=== PATIENT | female | born 1935 | race Caucasian/White ===

== ENCOUNTER → 2017-11-08 | Outpatient (CLI) | payer BC ==
[~2017-11-08] MED LIST: CARTIA XT120 M1 PO; CLOBETASOL PROP50 M1 TOP; ELIQUIS5 MG PO; FLONASE 0.05%50 MCG NASAL; GARLIPURE600 MG PO; KRILL OIL 1,001 EAC1 PO; LISINOPRIL-HCT1 EACH PO; PROTONIX40 M1 PO; VITAMIN A10000 UNI3; VITAMIN B-12500 MCG PO; VITAMIN D3400 UNIT PO; VITAMIN E400 UNIT PO; VITAMINC500 PO; ZOCOR20 MG
== END ==
LOC: M.RAD 12:37
DX: Z12.31 Encounter for screening mammogram for malignant neoplasm of breast (principal)

== ENCOUNTER 2018-08-03 17:15 | Emergency (ER) | payer BC ==
[~2018-08-03] VITALS: Ht 157.5 cm; Wt 72.6 kg
[2018-08-03] MEDS ORDERED: PROTONIX40 M1 PO (17:26)
[2018-08-03] MEDS ORDERED: LISINOPRIL-HCT1 EACH PO (17:26)
[2018-08-03] MEDS ORDERED: ZOCOR20 MG (17:27)
[2018-08-03] MEDS ORDERED: ELIQUIS5 MG PO (17:27)
[2018-08-03] MEDS ORDERED: CARTIA XT120 M1 PO (17:28)
[2018-08-03] MEDS ORDERED: FLONASE 0.05%50 MCG NASAL (17:28)
[2018-08-03] MEDS ORDERED: VITAMIN B-12500 MCG PO (17:29)
[2018-08-03] MEDS ORDERED: VITAMIN E400 UNIT PO (17:29)
[2018-08-03] MEDS ORDERED: CLOBETASOL PROP50 M1 TOP (17:29)
[2018-08-03] MEDS ORDERED: VITAMINC500 PO (17:29)
[2018-08-03] MEDS ORDERED: VITAMIN D3400 UNIT PO (17:29)
[2018-08-03] MEDS ORDERED: VITAMIN A10000 UNI3 (17:30)
[2018-08-03] MEDS ORDERED: KRILL OIL 1,001 EAC1 PO (17:30)
[2018-08-03] MEDS ORDERED: GARLIPURE600 MG PO (17:31)
[2018-08-03 17:59] VITALS: BP 143/91
== END 2018-08-03 18:00 | disposition home or self-care (01) ==
LOC: M.ERS 17:15
DX: L76.22 Postprocedural hemorrhage of skin and subcutaneous tissue following other procedure (principal); I48.91 Unspecified atrial fibrillation; I10 Essential (primary) hypertension; K21.9 Gastro-esophageal reflux disease without esophagitis; Z90.49 Acquired absence of other specified parts of digestive tract

== ENCOUNTER → 2018-11-06 | Outpatient (CLI) | payer BC | LOC: M.RAD 11:17 | DX: Z12.31 Encounter for screening mammogram for malignant neoplasm of breast (principal) ==

== ENCOUNTER 2018-11-27 12:16 | Inpatient (IN) | payer BC ==
[~2018-11-27] VITALS: Ht 157.5 cm; Wt 74.4 kg
[~2018-11-27 12:16] MED LIST changes: -ZOCOR20 MG; +ZOCOR20 MG PO
[2018-11-27 12:17] VITALS: BP 166/92
[2018-11-27 13:05] LABS: URINE BILIRUBIN NEGATIVE (Negative); URINE BLOOD TRACE (Negative); URINE CLARITY CLEAR; URINE COLOR YELLOW; URINE GLUCOSE-RANDOM NEGATIVE (Negative); URINE KETONES NEGATIVE (Negative); URINE LEUKOCYTES-REFLEX NEGATIVE (Negative); URINE NITRITE-REFLEX NEGATIVE (Negative); URINE PROTEIN NEGATIVE (Negative); URINE SPECIFIC GRAVITY 1.015 (1.005-1.030); URINE UROBILINOGEN 0.2 E.U./dl (0.2-1.0)
[2018-11-27 13:06] LABS: ABSOLUTE BASOPHILS 0.1 thou/uL (0.0-0.2); ABSOLUTE LYMPHOCYTES 1.1 thou/uL (0.8-5.3); ABSOLUTE MONOCYTES 0.4 thou/uL (0.0-1.2); ABSOLUTE NEUTROPHILS 4.9 thou/uL (1.6-8.1); BASOPHILS 1.3 %; EOSINOPHILS 0.4 %; HEMATOCRIT 33.9 % (37.0-47.0); HEMOGLOBIN 11.1 gm/dL (12.0-15.0); LYMPHOCYTES 16.4 %; MCH 27.5 pg (26.0-34.0); MCHC 32.7 g/dL (28.0-37.0); MCV 84.3 fL (80.0-100.0); MONOCYTES 6.5 %; MPV 9.4 fl. (7.2-11.1); NUCLEATED RBCS 0 /100WBC; PLATELET COUNT* 310 thou/uL (150-400); POLYS 75.4 %; RBC 4.03 mil/uL (4.20-5.00); RDW-CV 16.4 % (10.5-14.5); WBC 6.5 thou/uL (4.0-11.0)
[2018-11-27 13:16] LABS: APTT 26.8 Seconds (25.0-31.3); CALCIUM 9.2 mg/dL (8.5-10.1); CREATININE 1.3 mg/dL (0.6-1.3); INR 1.1; POTASSIUM 3.1 mmol/L (3.5-5.1); PROTIME 11.6 Seconds (9.20-11.50)
[2018-11-27 13:20] LABS: ALBUMIN 3.9 g/dL (3.4-5.0); TOTAL BILIRUBIN 0.3 mg/dL (<0.1-1.0); TOTAL PROTEIN 7.5 g/dL (6.4-8.2)
[2018-11-27 15:22] VITALS: BP 136/71
--- NOTE | 2018-11-27 15:38 | EKG ---
[place] [address] ELECTROCARDIOGRAM REPORT Name: TRAVIS AMBRIZ Room: [place] [address] ADM IN [facility]#: [id number] Admission: 11/27/18 Attend Phys: Rad Shelton Discharge: Date of : 37 Report #: [id number] THIS REPORT FOR: //name// [facility] ED Test Date: 2018-11-27 Test Time: 12:44:21 Pat Name: TRAVIS AMBRIZ Department: Room: [facility] Gender: F Technical Support Intern: tdtimmy : 1935 Requested By: Latisha Torres Order Number: [id number] MD: Dio Jaramillo Measurements Intervals [place] Rate: 73 P: [place]: QRS: 87 QRSD: 99 T: 27 QT: 411 QTc: 453 Interpretive Statements Atrial fibrillation Borderline right axis deviation Baseline wander in lead(s) III,aVF No previous ECG available for comparison Electronically Signed On 11-27-2018 15:38:22 MARKET PRESIDENT by Dio Jaramillo [email or web address] <ELECTRONICALLY SIGNED> By: Dio Jaramillo MD, [facility] 11/27/18 1538 1244 1244 Dio Jaramillo MD, FAC /EPI
[2018-11-27 17:33] VITALS: BP 147/59
[2018-11-27 20:30] VITALS: BP 125/71
[2018-11-28 04:11] LABS: HEMATOCRIT 28.6 % (37.0-47.0); HEMOGLOBIN 9.3 gm/dL (12.0-15.0); MCH 27.8 pg (26.0-34.0); MCHC 32.6 g/dL (28.0-37.0); MCV 85.2 fL (80.0-100.0); MPV 9.4 fl. (7.2-11.1); RBC 3.36 mil/uL (4.20-5.00); WBC 9.7 thou/uL (4.0-11.0)
[2018-11-28 04:29] LABS: ALBUMIN 3.1 g/dL (3.4-5.0); CALCIUM 8.2 mg/dL (8.5-10.1); CREATININE 1.1 mg/dL (0.6-1.3); POTASSIUM 3.7 mmol/L (3.5-5.1); TOTAL BILIRUBIN 0.5 mg/dL (<0.1-1.0); TOTAL PROTEIN 6.3 g/dL (6.4-8.2)
[2018-11-28 07:30] VITALS: BP 133/68
[2018-11-28 11:52] VITALS: BP 117/67; BP 123/64; BP 124/66; BP 130/70
[2018-11-28 12:55] VITALS: BP 133/68
[2018-11-28 18:38] LABS: HEMATOCRIT 35.2 % (37.0-47.0); HEMOGLOBIN 10.9 gm/dL (12.0-15.0)
[2018-11-28 19:30] VITALS: BP 131/78
[2018-11-29] VITALS: BP 138/68
[2018-11-29 03:39] LABS: HEMATOCRIT 28.9 % (37.0-47.0); HEMOGLOBIN 9.4 gm/dL (12.0-15.0)
[2018-11-29 04:00] VITALS: BP 124/63
[2018-11-29 09:00] VITALS: BP 122/63
[2018-11-29 16:03] VITALS: BP 139/77
[2018-11-29 20:45] VITALS: BP 99/43
[2018-11-30] VITALS: BP 93/50
[2018-11-30 04:00] VITALS: BP 95/50
[2018-11-30 05:32] LABS: HEMOGLOBIN 7.5 gm/dL (12.0-15.0); MCH 28.1 pg (26.0-34.0); MCHC 32.8 g/dL (28.0-37.0); MCV 85.9 fL (80.0-100.0); MPV 9.5 fl. (7.2-11.1); RBC 2.68 mil/uL (4.20-5.00); WBC 7.7 thou/uL (4.0-11.0)
[2018-11-30 09:06] VITALS: BP 121/45
[2018-11-30 12:58] VITALS: BP 101/52
[2018-11-30 17:16] VITALS: BP 122/70
[2018-11-30 19:15] VITALS: BP 125/57
[2018-12-01 08:30] VITALS: BP 129/61; BP 138/62
[2018-12-01 17:09] VITALS: BP 125/59
[2018-12-01 20:30] VITALS: BP 122/71
[2018-12-02 04:31] VITALS: BP 110/68
[2018-12-02 05:54] LABS: HEMATOCRIT 20.7 % (37.0-47.0)
[2018-12-02 06:01] LABS: HEMOGLOBIN 6.7 gm/dL (12.0-15.0)
--- NOTE | 2018-12-02 07:17 | OP ---
[address] [address] OPERATIVE REPORT Name: TRAVIS AMBRIZ Room: [address] IN ..#: [id number] Admission: 11/27/18 Attend Phys: Rad Shelton Discharge: Date of : 37 Report #: [id number] THIS REPORT FOR: //name// CC: Meredith Zeng DICTATED BY: Ari Hyde DO DATE OF SERVICE: 11/28/2018 PREOPERATIVE DIAGNOSIS: Right reverse obliquity intertrochanteric femur fracture. POSTOPERATIVE DIAGNOSIS: Right reverse obliquity intertrochanteric femur fracture. SURGEON: Dao Flood DO ASSISTANTS: 1. Raoul Bland DO 2. Ari Hyde DO OPERATION PERFORMED: Right hip open reduction and internal fixation with cephalomedullary nail. ANESTHESIA: General. ESTIMATED BLOOD LOSS: 600 mL. SPECIMENS: None. DRAINS: None. COMPLICATIONS: None. CONDITION: The patient is stable to PACU. ORTHOPEDIC IMPLANTS: 1. Emely 340 mm gamma nail. 2. Emely 90 mm compression screw. 3. Emely 42.5 mm and 47.5 mm distal interlocking screws. INDICATIONS FOR PROCEDURE: The patient is a pleasant 83-year-old female who had a fall and ultimately breaking her right hip. She was brought to the Emergency Department where she was found to have an intertrochanteric femur fracture. She was admitted to the med/surg floor and medically optimized while her blood [facility] [address] [place] [address] OPERATIVE REPORT Name: TRAVIS AMBRIZ Room: [address] IN .R.#: [id number] Admission: 11/27/18 Attend Phys: Rad Shelton Discharge: Date of : 37 Report #: [id number] thinner was held for greater than 24 hours. She was then made n.p.o. and consented for open reduction and internal fixation of her right femur. All risks, benefits, complications, indications, alternatives reviewed and the patient wished to proceed. PROCEDURE DESCRIPTION: The patient brought to the operative suite and placed on the [place] table after given the benefits of general anesthesia. Once appropriate position on the [place] table, a Leadbetter closed reduction maneuver was attempted multiple times, eventually getting this to near anatomic reduction; however, there still was some step-off anteriorly as the reverse obliquity fracture pattern made the proximal fragment tough to control. Ultimately, we were fairly pleased at this point and went ahead and prepped the hip. Once the hip was sterilely prepped, a timeout was taken to ensure the correct patient, procedure, operative site and everybody in the room agreed and confirmed. Antibiotics had been given. We then proceeded to make a skin incision from just distal to the greater trochanter to proximal. This was done through skin and subcutaneous tissue and then the tensor fascia was split. This allowed us access to the greater trochanter. A Harris elevator was used to mobilize the proximal fragment and ultimately bring it out of external rotation. Once this was done, we had anatomic reduction on fluoroscopy both AP and lateral views. We then positioned our guide pin in the appropriate position just medial to the tip of the greater trochanter. This was advanced down to the level of lesser trochanter. A 15.5 mm entry reamer was then taken down over the guidewire to the lesser trochanter. Ball-tipped guidewire was then passed to the superior pole of the patella, was measured to be 345 mm. We elected to use a 340 mm nail. We then sequentially reamed starting with an 11 mm reamer up to a 13. We then passed our 11 x 340 mm [place] right-sided gamma nail. This was malleted into the appropriate depth. We then used our triple sleeve to place our guide pin in the appropriate position, low in the neck and center-center on the lateral. This was taken to subchondral bone and measured. We elected to ream to a 90 mm depth where we placed our 90 mm lag screw. This was done. We obtained orthogonal imaging through this portion of the case. At this point, the set screw was engaged and locked our compression screw within the gamma nail at the desired position. We then took final AP and lateral images proximally after removing the targeting arm. We then brought our attention distally and used a perfect nondalton technique to place 2 distal interlocking screws. Knife was used to make skin incision through skin and IT band and then the drill was used with the aid of fluoroscopy to drill both the static interlocking screw as well as the static position of the oblong slot on the nail. These were drilled and measured to be 42.5 and 47.5 mm respectively and titanium interlocking screws were placed. At this point, final AP and lateral images were taken confirming we were indeed within the nail. These were saved to the PACS system. We then irrigated the wounds with normal saline. We closed the deep tensor fascia and IT band with a #1 Vicryl as well as a #1 Stratafix. We used a #1 Stratafix to approximate the subcutaneous layer. Try and prevent any hematoma formation, we then closed with a 2-0 Vicryl followed by jose d on the skin. Mepilex dressing, 4 x 4s, ABD and [address] [address] OPERATIVE REPORT Name: TRAVIS AMBRIZ Room: [address] IN .R.#: [id number] Admission: 11/27/18 Attend Phys: Rad Shelton Discharge: Date of : 37 Report #: [id number] Medipore tape were applied. The patient awoken from anesthesia and brought to the PACU in a stable condition. <ELECTRONICALLY SIGNED> By: Shaheen Miller DO 12/02/18 0717 1818 1920Dao Flood DO /nt
[2018-12-02 08:00] VITALS: BP 114/61
[2018-12-02 09:30] VITALS: BP 124/54; BP 127/68; BP 128/58; BP 129/96; BP 140/72
[2018-12-02 15:52] LABS: HEMOGLOBIN 9.3 gm/dL (12.0-15.0)
[2018-12-02 20:00] VITALS: BP 130/67
[2018-12-03 08:38] VITALS: BP 140/69
[2018-12-03 16:00] VITALS: BP 123/69
[2018-12-03 20:00] VITALS: BP 147/85
[2018-12-04 09:50] LABS: HEMATOCRIT 31.5 % (37.0-47.0); HEMOGLOBIN 10.2 gm/dL (12.0-15.0)
[2018-12-04 12:00] VITALS: BP 121/52
[2018-12-04 13:21] LABS: MCH 28.2 pg (26.0-34.0); MCHC 31.9 g/dL (28.0-37.0); MCV 88.6 fL (80.0-100.0); MPV 9.9 fl. (7.2-11.1); RBC 3.6 mil/uL (4.20-5.00); WBC 17.2 thou/uL (4.0-11.0)
[2018-12-04 13:27] LABS: CALCIUM 9.3 mg/dL (8.5-10.1); CREATININE 1.6 mg/dL (0.6-1.3); POTASSIUM 3.9 mmol/L (3.5-5.1); TOTAL BILIRUBIN 1.9 mg/dL (<0.1-1.0); TOTAL PROTEIN 5.4 g/dL (6.4-8.2)
[2018-12-04 15:49] VITALS: BP 151/82
[2018-12-04 20:00] VITALS: BP 99/61
[2018-12-05 04:04] LABS: HEMATOCRIT 24.5 % (37.0-47.0); MCH 27.8 pg (26.0-34.0); MCHC 31.8 g/dL (28.0-37.0); MCV 87.2 fL (80.0-100.0); NUCLEATED RBCS 0 /100WBC; PLATELET COUNT* 363 thou/uL (150-400); RBC 2.82 mil/uL (4.20-5.00); RDW-CV 16.8 % (10.5-14.5); WBC 14.4 thou/uL (4.0-11.0)
[2018-12-05 04:20] LABS: HEMOGLOBIN 7.8 gm/dL (12.0-15.0)
[2018-12-05 04:32] LABS: ALBUMIN 1.9 g/dL (3.4-5.0); CALCIUM 8.5 mg/dL (8.5-10.1); CREATININE 1.5 mg/dL (0.6-1.3); POTASSIUM 4.4 mmol/L (3.5-5.1); TOTAL BILIRUBIN 0.6 mg/dL (<0.1-1.0); TOTAL PROTEIN 5.4 g/dL (6.4-8.2)
[2018-12-05 06:19] LABS: ABSOLUTE LYMPHOCYTES 1.2 thou/uL (0.8-5.3); ABSOLUTE MONOCYTES 0.9 thou/uL (0.0-1.2); ABSOLUTE NEUTROPHILS 12.4 thou/uL (1.6-8.1); HYPOCHROMASIA 2+; PLATELET ESTIMATE ADEQUATE; POLYCHROMASIA 1+
[2018-12-05 06:20] LABS: MICROCYTES 1+; OVALOCYTES 1+
[2018-12-05 08:15] VITALS: BP 98/31
[2018-12-05 16:30] VITALS: BP 129/57
[2018-12-05 21:02] VITALS: BP 113/53
[2018-12-06 03:58] VITALS: BP 110/62
[2018-12-06 04:36] LABS: ABSOLUTE EOSINOPHILS 0.1 thou/uL (0.0-0.7); ABSOLUTE LYMPHOCYTES 0.7 thou/uL (0.8-5.3); ABSOLUTE MONOCYTES 0.4 thou/uL (0.0-1.2); ABSOLUTE NEUTROPHILS 5.9 thou/uL (1.6-8.1); BASOPHILS 0.5 %; LYMPHOCYTES 9.9 %; MCH 29.4 pg (26.0-34.0); MCHC 33.8 g/dL (28.0-37.0); MONOCYTES 5.6 %; MPV 8.8 fl. (7.2-11.1); NUCLEATED RBCS 0 /100WBC; RBC 2.29 mil/uL (4.20-5.00); RDW-CV 17.1 % (10.5-14.5); WBC 7.2 thou/uL (4.0-11.0)
[2018-12-06 04:51] LABS: CALCIUM 8.3 mg/dL (8.5-10.1); CREATININE 1.2 mg/dL (0.6-1.3); POTASSIUM 4.1 mmol/L (3.5-5.1)
[2018-12-06 04:56] LABS: PLATELET COUNT* 252 thou/uL (150-400)
[2018-12-06 04:57] LABS: HEMATOCRIT 19.9 % (37.0-47.0); HEMOGLOBIN 6.7 gm/dL (12.0-15.0)
--- NOTE | 2018-12-06 08:52 | CON ---
[address] [address] CONSULTATION Name: TRAVIS AMBRIZ Room: [address] IN .R.#: [id number] Admission: 11/27/18 Attend Phys: Rad Shelton Discharge: Date of : 37 Report #: [id number] THIS REPORT FOR: //name// CC: Meredith Zeng DATE OF SERVICE: 12/05/2018 INFECTIOUS DISEASE CONSULTATION ATTENDING PHYSICIAN: Tc Mendiola M.D. REASON FOR EVALUATION: Postoperative right femur fracture, concern about possible surgical site infection. HISTORY OF PRESENT ILLNESS: Chart reviewed, patient examined. This is an 83-year-old woman with history of hypertension who was admitted through the Emergency Room after a fall, was confirmed to have complex fracture involving the right femur and displaced subtrochanteric fracture, more specifically. She underwent operative repair on 11/28/2018 involving right hip open reduction and internal fixation with a cephalomedullary nail. Postop course has been fairly unremarkable up until last 24 hours when excessive drainage from the site. She denies significant discomfort associated with it, tries to find a pain means to her in terms of sharpness, she does not have that, perhaps more of squeezing or pressure type pain. She has been afebrile. She does admit to some shakes, although this is not new for her. She does admit to anorexia with poor p.o. intake. She is able to maneuver for short distances including transfers. She had undergone imaging with CT this morning showed no evidence of intraperitoneal or retroperitoneal hemorrhage. Small bilateral pleural effusions. Ultrasound is pending. She is on empiric antimicrobials with amoxicillin, had been on ceftriaxone. It is notable urine culture earlier in the hospitalization had growth of Enterococcus faecalis that was generally susceptible. ALLERGIES: None known. MEDICATIONS: Addition of the amoxicillin, alprazolam, bisacodyl, apixaban, atorvastatin, diltiazem CD and pantoprazole. PAST MEDICAL HISTORY: Hypertension, reflux and atrial fibrillation. SOCIAL HISTORY: Nonsmoker, no ethanol, no illicit drug use. FAMILY HISTORY: Noncontributory. REVIEW OF SYSTEMS: Otherwise, denies significant pulmonary or gastrointestinal related complaints. She has significant anxiety. Otherwise, [place] [address] CONSULTATION Name: TRAVIS AMBRIZ Room: [address] IN [facility]#: [id number] Admission: 11/27/18 Attend Phys: Rad Shelton Discharge: Date of : 37 Report #: [id number] 10-point review of systems with exception noted above history of present illness. PHYSICAL EXAMINATION: GENERAL: Appears in potr-ah-aklrqmrv distress. She is having some difficulty talking due to a dry mouth. She states she is mildly undernourished. She is pleasant, cooperative, seems to be oriented. VITAL SIGNS: Temperature 97.7, pulse 92, respirations 18 and blood pressure 99/61. SKIN: Warm, dry, no rashes. HEENT: Normocephalic. Extraocular muscles intact. NECK: Supple. LUNGS: Somewhat diminished at the bases. Few scattered crackles. HEART: Regular. Borderline tachycardic. I do not appreciate a murmur. ABDOMEN: Soft, nontender and nondistended. EXTREMITIES: Right proximal lower extremity has a lengthy lateral incision that is covered by a dressing. There is moderate to marked degree of tissue edema, not particularly cellulitic in appearing. There is no evident of rashes. Does have posteriorly large contused area. Overall, there is no significant amount of palpable tenderness. Distal lower extremities are warm. LABORATORY AND X-RAY DATA: Most recent CBC: White count of 14.4, H and H 7.8 that is down from 10.2 and 24.5 hematocrit and platelets of 363. Differential otherwise unremarkable. Electrolytes: Sodium 132, potassium 4.4, chloride 101, bicarbonate is 27, anion gap of 4, BUN and creatinine 39 and 1.5, glucose of 130. LFTs unremarkable. Albumin 1.9, total protein of 5.4. Urine culture as described above with Enterococcus faecalis. Prealbumin of 9.0. ASSESSMENT: Postoperative wound drainage site of the extensive surgery, suspected large seroma and possible component of hematoma as well. At this point, I am not sure there is any evidence of active infection other than perhaps urinary tract. We will await the imaging studies to see how she does clinically, certainly her hypoalbuminemia and questionable nutritional status. At this point, we will try to optimize that. She is at risk for nosocomial infectious complications. She was encouraged to utilize the incentive spirometer and advance her activity as tolerated. We will follow. <ELECTRONICALLY SIGNED> By: Kong Munguia MD 12/06/18 0852 1019 [id number] Munguia MD /nt
[2018-12-06 09:00] VITALS: BP 140/79
[2018-12-06 11:49] VITALS: BP 138/61; BP 145/86; BP 148/67; BP 151/73; BP 151/86
[2018-12-06 14:31] LABS: URINE BILIRUBIN NEGATIVE (Negative); URINE BLOOD NEGATIVE (Negative); URINE CLARITY CLEAR; URINE COLOR YELLOW; URINE GLUCOSE-RANDOM NEGATIVE (Negative); URINE KETONES NEGATIVE (Negative); URINE LEUKOCYTES-REFLEX NEGATIVE (Negative); URINE NITRITE-REFLEX NEGATIVE (Negative); URINE PROTEIN NEGATIVE (Negative); URINE UROBILINOGEN 0.2 E.U./dl (0.2-1.0)
[2018-12-06 19:00] LABS: HEMATOCRIT 28.6 % (37.0-47.0)
[2018-12-06 19:01] LABS: HEMOGLOBIN 9.4 gm/dL (12.0-15.0)
[2018-12-06 20:36] VITALS: BP 156/59
[2018-12-07 03:05] VITALS: BP 169/77
[2018-12-07 08:00] VITALS: BP 155/71
[2018-12-07 16:15] VITALS: BP 147/73
--- NOTE | 2018-12-07 16:37 | EKG ---
[place] [address] ELECTROCARDIOGRAM REPORT Name: TRAVIS AMBRIZ Room: [address] ADM IN M.R.#: [id number] Admission: 11/27/18 Attend Phys: Rad Shelton Discharge: Date of : 37 Report #: [id number] THIS REPORT FOR: //name// [facility] Test Date: 2018-12-07 Test Time: 08:36:20 Pat Name: TRAVIS AMBRIZ Department: Room: [address] Gender: F Executive Assistant To General Counsel: [facility] : 1935 Requested By: Shaheen Miller Order Number: [id number] Ramo MD: Jf Pettit Measurements Intervals [place] Rate: 85 P: [place]: QRS: 66 QRSD: 84 T: 4 QT: 368 QTc: 438 Interpretive Statements Atrial fibrillation Compared to ECG 11/27/2018 12:44:21 No significant changes Electronically Signed On 12-07-2018 16:37:26 ASSISTANT [employer] PUBLIC DEFENDER by Jf Pettit [email or web address] <ELECTRONICALLY SIGNED> By: Jf Pettit MD, [facility] 12/07/18 1637 0836 0836 Jf Pettit MD, FACC /EPI
[2018-12-07 20:15] VITALS: BP 171/92
[2018-12-08 09:20] VITALS: BP 162/90
[2018-12-08 16:00] VITALS: BP 166/82
[2018-12-08 19:40] VITALS: BP 158/86
[2018-12-09 04:00] VITALS: BP 138/62
[2018-12-09 08:15] VITALS: BP 165/96
[2018-12-09 16:10] VITALS: BP 158/88
[2018-12-09 20:00] VITALS: BP 159/99
[2018-12-10 04:00] VITALS: BP 167/83
[2018-12-10 09:10] VITALS: BP 166/93
[2018-12-10 16:13] VITALS: BP 148/87
[2018-12-11 04:44] LABS: ABSOLUTE BASOPHILS 0.1 thou/uL (0.0-0.2); ABSOLUTE EOSINOPHILS 0.1 thou/uL (0.0-0.7); ABSOLUTE MONOCYTES 0.6 thou/uL (0.0-1.2); ABSOLUTE NEUTROPHILS 4.5 thou/uL (1.6-8.1); CALCIUM 8.9 mg/dL (8.5-10.1); EOSINOPHILS 0.9 %; HEMATOCRIT 29.3 % (37.0-47.0); HEMOGLOBIN 9.4 gm/dL (12.0-15.0); LYMPHOCYTES 15.9 %; MCH 28.2 pg (26.0-34.0); MCHC 31.9 g/dL (28.0-37.0); MCV 88.3 fL (80.0-100.0); MPV 8.3 fl. (7.2-11.1); NUCLEATED RBCS 0 /100WBC; PLATELET COUNT* 443 thou/uL (150-400); POLYS 73.2 %; POTASSIUM 3.4 mmol/L (3.5-5.1); RBC 3.32 mil/uL (4.20-5.00); RDW-CV 17.5 % (10.5-14.5); WBC 6.2 thou/uL (4.0-11.0)
[2018-12-11 07:48] VITALS: BP 148/73
[2018-12-11] MEDS ORDERED: METAMUCIL1 EAC1 PO (09:37)
[2018-12-11] MEDS ORDERED: MILK OF MA400 MG/5 M PO (09:38)
[2018-12-11 09:40] VITALS: BP 148/73
[2018-12-11] MEDS ORDERED: NORCO 5-325 TA1 EACH PO (10:47)
[2018-12-11 20:00] VITALS: BP 130/76
[2018-12-12 02:30] VITALS: BP 148/73
[2018-12-12 08:00] VITALS: BP 148/75
[2018-12-12 15:06] VITALS: BP 148/75
[2018-12-12 16:25] VITALS: BP 148/75
== END 2018-12-12 15:20 | DRG 480 ==
LOC: M.ERS 12:16 → M.TBA-ER 14:37 → M.ORTHSURG 14:37
PROVIDERS: Family Medicine; Internal Medicine; Nurse Practitioner Family; Orthopaedic Surgery; Specialist; ADMIT Internal Medicine
PROC: 30233N1 Transfusion of Nonautologous Red Blood Cells into Peripheral Vein, Percutaneous Approach (ICD-10-PCS; principal; 2018-11-28)
PROC: 0QS604Z Reposition Right Upper Femur with Internal Fixation Device, Open Approach (ICD-10-PCS; principal; 2018-11-28)
DX: M80.051A Age-related osteoporosis with current pathological fracture, right femur, initial encounter for fracture (principal); E43 Unspecified severe protein-calorie malnutrition; N39.0 Urinary tract infection, site not specified; D62 Acute posthemorrhagic anemia; G93.40 Encephalopathy, unspecified; L76.34 Postprocedural seroma of skin and subcutaneous tissue following other procedure; N17.9 Acute kidney failure, unspecified; I48.91 Unspecified atrial fibrillation; I10 Essential (primary) hypertension; K21.9 Gastro-esophageal reflux disease without esophagitis; R73.9 Hyperglycemia, unspecified; K59.00 Constipation, unspecified; B95.2 Enterococcus as the cause of diseases classified elsewhere; R73.03 Prediabetes; Z90.49 Acquired absence of other specified parts of digestive tract; Z79.01 Long term (current) use of anticoagulants; Z79.899 Other long term (current) drug therapy; W18.39XA Other fall on same level, initial encounter; Y93.89 Activity, other specified; Y92.89 Other specified places as the place of occurrence of the external cause; Y99.8 Other external cause status; Z68.30 Body mass index [BMI] 30.0-30.9, adult

== ENCOUNTER 2019-05-04 13:07 | Emergency (ER) | payer BC ==
[~2019-05-04] VITALS: Ht 157.5 cm; Wt 69.8 kg
[~2019-05-04 13:07] MED LIST changes: +METAMUCIL1 EAC1 PO; +MILK OF MA400 MG/5 M PO; +NORCO 5-325 TA1 EACH PO
[2019-05-04 15:27] VITALS: BP 158/95
== END 2019-05-04 15:27 | disposition home or self-care (01) ==
LOC: M.ERS 13:07
DX: S61.211A Laceration without foreign body of left index finger without damage to nail, initial encounter (principal); I48.91 Unspecified atrial fibrillation; I10 Essential (primary) hypertension; M85.80 Other specified disorders of bone density and structure, unspecified site; K21.9 Gastro-esophageal reflux disease without esophagitis; Z90.89 Acquired absence of other organs; W26.0XXA Contact with knife, initial encounter; Y93.89 Activity, other specified; Y92.89 Other specified places as the place of occurrence of the external cause; Y99.8 Other external cause status

== ENCOUNTER → 2020-02-01 | Outpatient (CLI) | payer BC | LOC: M.RAD 10:33 | DX: Z12.31 Encounter for screening mammogram for malignant neoplasm of breast (principal) ==

== ENCOUNTER 2020-02-10 19:40 | Emergency (ER) | payer BC ==
[~2020-02-10] VITALS: Ht 157.5 cm; Wt 70.8 kg
[2020-02-10] MEDS ORDERED: ELIQUIS5 M1 PO (19:44)
[2020-02-10] MEDS ORDERED: CARTIA XT120 M1 PO (19:44)
[2020-02-10] MEDS ORDERED: LISINOPRIL-HCT1 EACH PO (19:44)
[2020-02-10] MEDS ORDERED: PROTONIX40 M2 PO (19:44)
[2020-02-10] MEDS ORDERED: FLONASE 0.05%50 MCG NARES (19:45)
[2020-02-10] MEDS ORDERED: CLOBETASOL EMOL15 GM TOP (19:45)
[2020-02-10] MEDS ORDERED: VITAMIN D310 MC2 PO (19:46)
[2020-02-10] MEDS ORDERED: FOSAMAX 70 MG T70 MG PO (19:46)
[2020-02-10] MEDS ORDERED: CALCIUM500 MG PO (19:46)
[2020-02-10] MEDS ORDERED: OXYBUTYNIN 5 MG5 M2 PO (19:48)
[2020-02-10] MEDS ORDERED: TRAMADOL 50 MG50 MG PO (21:35)
[2020-02-10 22:12] VITALS: BP 150/78
== END 2020-02-10 22:12 | disposition home or self-care (01) ==
LOC: M.ERS 19:40
DX: S80.01XA Contusion of right knee, initial encounter (principal); I10 Essential (primary) hypertension; I48.91 Unspecified atrial fibrillation; Z98.51 Tubal ligation status; Z90.49 Acquired absence of other specified parts of digestive tract; W18.39XA Other fall on same level, initial encounter; Y93.89 Activity, other specified; Y92.89 Other specified places as the place of occurrence of the external cause; Y99.8 Other external cause status

== ENCOUNTER → 2020-06-06 | Outpatient (CLI) | payer BC ==
[~2020-06-06] MED LIST changes: +CALCIUM500 MG PO; +CLOBETASOL EMOL15 GM TOP; +ELIQUIS5 M1 PO; +FLONASE 0.05%50 MCG NARES; +FOSAMAX 70 MG T70 MG PO; +OXYBUTYNIN 5 MG5 M2 PO; +PROTONIX40 M2 PO; +TRAMADOL 50 MG50 MG PO; +VITAMIN D310 MC2 PO
== END ==
LOC: M.LAB 09:45
PROVIDERS: ATTEND Internal Medicine Gastroenterology
DX: Z20.828 Contact with and (suspected) exposure to other viral communicable diseases (principal); R13.10 Dysphagia, unspecified

== ENCOUNTER → 2020-06-09 | Outpatient (CLI) | payer BC | LOC: M.LAB 05:12 | PROVIDERS: ATTEND Anesthesiology | DX: E87.4 Mixed disorder of acid-base balance (principal) ==

== ENCOUNTER → 2020-09-15 | Outpatient (CLI) | payer BC | LOC: M.RAD 09:00 | PROVIDERS: ATTEND Nurse Practitioner Family | DX: M81.0 Age-related osteoporosis without current pathological fracture (principal) ==

== ENCOUNTER → 2020-12-14 | Outpatient (CLI) | payer BC | LOC: M.RAD 13:40 | PROVIDERS: ATTEND Nurse Practitioner Family | DX: M16.12 Unilateral primary osteoarthritis, left hip (principal); K44.9 Diaphragmatic hernia without obstruction or gangrene ==

== ENCOUNTER → 2021-02-02 | Outpatient (CLI) | payer BC | LOC: M.RAD 10:16 | PROVIDERS: ATTEND Nurse Practitioner Family | DX: Z12.31 Encounter for screening mammogram for malignant neoplasm of breast (principal) ==